=== PATIENT | male | born 1965 | race Caucasian/White ===

== ENCOUNTER 2021-07-04 06:50 | Day surgery (SDC) | payer OTHER ==
[~2021-07-04] VITALS: Ht 198.1 cm; Wt 144.0 kg
[~2021-07-04 06:50] MED LIST: ASPIR-LOW81 MG PO; ATIVAN1 MG PO; BUPROPION HCL75 MG PO; COLACE100 MG PO; CYCLOBENZAPRINE10 MG PO; DICLOFENAC SODI50 MG PO; HYDROCHLOROTHIA25 MG PO; HYOSCYAMINE0.125 M1 SL; MELATONIN10 M2 PO; METHOCARBAMOL500 MG PO; OMEPRAZOLE40 MG PO; OXYCODONE HCL5 MG PO; PENICILLIN V P500 MG PO; PREDNISONE20 MG PO; SILDENAFIL20 MG PO; SV B COMPLEX SU59 ML SL; TOPROL XL25 MG PO; TRAZODONE HCL100 MG PO; VENTOLIN HFA18 GM INH; ZOFRAN ODT8 MG PO
--- NOTE | 2021-07-04 09:00 | NUR ---
07/04/21 0900 Sheets,Shelia 0888 PT ARRIVED TO PACU ON 4L VIA MASK, RESP EVEN AND UNLABORED. VSS. PT NONAROUSABLE AND SNORING NOTED.
--- NOTE | 2021-07-04 10:59 | OR ---
[facility] [address] [place], [place] [address] Signed DATE OF OPERATION: 07/04/2021 SURGEON: Clair Voss MD PREOPERATIVE DIAGNOSES: 1. Gastroesophageal reflux disease. 2. Cough. 3. Intermittent rectal bleeding with bowel movements. 4. Daily aspirin use. 5. Intermittent NSAID use. 6. Screening. POSTOPERATIVE DIAGNOSES: 1. Gastroesophageal junction at 42 cm. 2. Small hiatal hernia (2-3 cm). 3. Mild diffuse gastritis. 4. Minimal to moderate internal hemorrhoids. PROCEDURES: 1. Esophagogastroduodenoscopy with CLOtest and biopsies of the antrum and gastroesophageal junction. 2. Colonoscopy with hot biopsy. ESTIMATED BLOOD LOSS: None. INDICATIONS: Jarad is a 55-year-old gentleman asked to see me for both upper and lower endoscopy. He said he has had acid reflux for years associated with a cough. He was started on omeprazole. He said 85% better overall. He does use ibuprofen on a daily basis for his back. He also uses aspirin for his heart. He will see blood in his stool intermittently. If he slows down on the ibuprofen that seems to joshua. He gives no family history of colon cancer or polyps. He has never had a previous colonoscopy. In the office, I gave him pamphlets on both upper and lower endoscopy. We reviewed the nature of the two tests in detail. He understands there is risk including, but not limited to gas bloating, crampy abdominal pain, bleeding, perforation requiring surgery, and missed diagnosis. Also, given his large size and his significant medical history including his cardiac history, we asked that an anesthesia provider to help us with increased monitoring and sedation with propofol. He had expressed understanding and wished to proceed. Electronically Signed By: CLAIR VOSS MD 07/04/21 1059 PATIENT NAME: JARAD MERAZ OPERATIVE REPORT DATE OF : 69 REPORT #: [id number] PHYSICIAN: CLAIR VOSS MD PCP: SHAYY BANKS MD REPORT IS CONFIDENTIAL AND NOT TO BE RELEASED WITHOUT AUTHORIZATION [facility] [address], [place] [address] Signed PROCEDURE NOTE: Jarad was taken into our endoscopy suite and placed in the supine semi-recumbent position. The posterior oropharynx was anesthetized with lidocaine spray. A bite block was utilized for the case. He was given monitored anesthesia care per our nurse stonecutter. The adult gastroscope was introduced and advanced under direct visualization of camera out into the third portion of the duodenum. The duodenum and pyloric channel were unremarkable. The stomach showed very mild diffuse erythematous changes. We went and took a biopsy from antrum for CLOtest as well as pathologic review. Upon retroflexion of scope, we can see he has just a small hiatal hernia. The scope was withdrawn up through the area of GE junction, which was compliant without stricture. He does have mild to moderate disruption to his Z-line. He had a little irritation on the one side. We went ahead and took a couple of biopsies for pathologic review. No obvious Sharp's mucosa. No distal esophagitis. The middle and upper esophagus were unremarkable. After this, the gas was suctioned out and the gastroscope removed. Jarad tolerated his upper endoscopy quite well. Jarad was rotated into the left lateral decubitus position. He was maintained on monitored anesthesia care per our nurse stonecutter. A digital rectal exam was performed and this was unremarkable. Jarad is a large man, we could not feel much of his prostate. The adult colonoscope had been introduced and advanced quite readily around into the cecum under direct visualization of the camera without difficulty. He had taken a double bowel prep due to his constipation associated with narcotics in the past. He was quite clean. The appendiceal orifice and ileocecal valve were easily visible. The scope was then slowly withdrawn. We took pictures throughout for photodocumentation. There were no polyps. There were no diverticula. The scope had been retroflexed in his rectum. He does have minimal to moderate internal hemorrhoids. I could see a couple areas that were little irritated and I suspect this is source of his intermittent rectal bleeding. After this, the gas was suctioned out and the colonoscope removed. Jarad tolerated procedure quite well. RECOMMENDATIONS: I will see Jarad back in my office in 7 to 14 days to review his results. I suspect he will stay on his proton-pump inhibitor. He will likely be on a 10-year rotation for his colonoscopies. Clair Voss MD Electronically Signed By: CLAIR VOSS MD 07/04/21 1059 PATIENT NAME: JARAD MERAZ MARY ANN OPERATIVE REPORT DATE OF : 69 REPORT #: [id number] PHYSICIAN: CLAIR VOSS MD PCP: SHAYY BANKS MD REPORT IS CONFIDENTIAL AND NOT TO BE RELEASED WITHOUT AUTHORIZATION [address] [address] Signed [facility] /[id number] cc: MD Shayy Martinez MD Copies: CLAIR VOSS MD ~ Electronically Signed By: CLAIR VOSS MD 07/04/21 1059 PATIENT NAME: JARAD MERAZ OPERATIVE REPORT DATE OF : 69 REPORT #: [id number] PHYSICIAN: CLAIR VOSS MD PCP: SHAYY BANKS MD REPORT IS CONFIDENTIAL AND NOT TO BE RELEASED WITHOUT AUTHORIZATION
--- NOTE | 2021-07-04 11:16 | NUR ---
PT IS ALERT, ORIENTED AND HIS MOTHER WILL P-UP FOLLOWING DC. PT MENTIONED HE HAS BATTLED CANCER AND THAT SCOPE PREP WAS TOLERABLE COMPARED TO WHAT HE HAS EXPERIENCED WITH HIS CANCER TREATMENTS. PT PLEASANT, REQUESTED PRAYER. WILL FOLLOW NEEDED
--- NOTE | 2021-07-08 16:09 | PATH ---
[facility] [address] [place], [place] [address] Signed SPECIMEN(S): A ANTRUM/PYLORUS BIOPSY SPECIMEN(S): B GE JUNCTION BIOPSY SPECIMEN SOURCE: A. ANTRUM/PYLORUS BIOPSY B. GE JUNCTION BIOPSY CLINICAL HISTORY: EGD/colonoscopy. Acid reflux, blood per rectum. Post: Upper: Small hiatal hernia. Lower: Internal hemorrhoids. MICROSCOPIC DESCRIPTION: Histologic sections of all submitted blocks are examined by light microscopy. These findings, together with the gross examination, support the pathologic diagnosis. FINAL PATHOLOGIC DIAGNOSIS: A. Stomach, antrum/pylorus, biopsy: - Gastric antral mucosa with mild chronic inactive gastritis. - Negative for Helicobacter pylori with HE stains. B. Gastroesophageal junction, biopsy: - Squamoglandular mucosa with ulceration, reactive epithelial changes, and intestinal metaplasia. - Indefinite for dysplasia, see comment. COMMENT: B. There is mild epithelial cytologic atypia characterized by nuclear enlargement and stratification. However, in the context of the chronic inflammation and ulceration, these findings may be reactive in nature, and are not definitive for dysplasia. Correlation with endoscopic information is needed, with consideration for repeat biopsy following resolution of inflammation This case was reviewed in consultation with a gastrointestinal pathologist. BRP:AMB:cml:C2NR GROSS DESCRIPTION: Two specimens are received in two containers labeled with "TN." A. The specimen, labeled "TN, 1," and designated on the requisition "antrum/pylorus biopsy," is received in formalin and consists of one fragment of pink-snyder tissue (0.3 cm in greatest dimension). The specimen is submitted entirely in cassette (A1). B. The specimen, labeled "TN, 2," and designated on the requisition "GE PATIENT NAME: JARAD MERAZ PATHOLOGY DATE OF : 69 REPORT #: [id number] PHYSICIAN: [facility] PCP: GINA BANKS MD REPORT IS CONFIDENTIAL AND NOT TO BE RELEASED WITHOUT AUTHORIZATION [facility] [address] [place], [place] [address] Signed junction biopsy," is received in formalin and consists of one fragment of pink-snyder tissue (0.6 cm in greatest dimension). The specimen is submitted entirely in cassette (B1). AC (under the direct supervision of a pathologist) The Gross Description was prepared using a voice recognition system. The report was reviewed for accuracy; however, sound-alike word errors, addition and/or deletions may occur. If there is any question about this report, please contact Client Services. PERFORMING LABORATORY: The technical component was performed by [facility], [address] [place] [id number] (Obstetrics Nurse: Marivel St MD; CLIA# [id number]). Professional interpretation was performed by [facility], [facility], [address] [place] [id number] (CLIA# [id number]). Diagnostician: Balta Sadler MD Pathologist Electronically Signed 07/08/2021 Copies: ~ PATIENT NAME: JARAD MERAZ PATHOLOGY DATE OF : 69 REPORT #: [id number] PHYSICIAN: [facility] PCP: GINA BANKS MD REPORT IS CONFIDENTIAL AND NOT TO BE RELEASED WITHOUT AUTHORIZATION
== END 2021-07-04 09:55 | disposition home or self-care (01) ==
LOC: OPS 06:50 → DS 06:50 → OPS 07:30 → DS 08:00 → OPS 08:00
PROVIDERS: ATTEND Colon & Rectal Surgery
PROC: 0DBN8ZX Excision of Sigmoid Colon, Via Natural or Artificial Opening Endoscopic, Diagnostic (ICD-10-PCS; 2021-07-04)
PROC: 0DB48ZX Excision of Esophagogastric Junction, Via Natural or Artificial Opening Endoscopic, Diagnostic (ICD-10-PCS; principal; 2021-07-04 07:30)
PROC: 0DB78ZX Excision of Stomach, Pylorus, Via Natural or Artificial Opening Endoscopic, Diagnostic (ICD-10-PCS; 2021-07-04 07:30)
DX: K29.50 Unspecified chronic gastritis without bleeding (principal); K25.9 Gastric ulcer, unspecified as acute or chronic, without hemorrhage or perforation; K44.9 Diaphragmatic hernia without obstruction or gangrene; K64.8 Other hemorrhoids; K21.9 Gastro-esophageal reflux disease without esophagitis; R05.9 Cough, unspecified
CPT/HCPCS: 83009; 88305; J0690; J1885; J2001; J2704; J7121